=== PATIENT | female | born 1935 | race Caucasian/White ===

== ENCOUNTER → 2018-01-08 08:57 | Outpatient (CLI) | payer MEDICARE, BC ==
[2012-04-26 11:54] VITALS: BMI 25.0
== END | disposition home or self-care (01) ==
LOC: D.RAD 01-05 11:00
DX: M48.062 Spinal stenosis, lumbar region with neurogenic claudication (principal)

== ENCOUNTER 2018-05-25 15:01 | Emergency (ER) | payer MEDICARE, BC ==
[~2018-05-25] VITALS: Ht 152.4 cm; Wt 57.3 kg
[2018-05-25 15:07] VITALS: Ht 152.4 cm; Wt 57.3 kg
[2018-05-25] MEDS ORDERED: ARTHROTEC EC 71 EACH PO (15:09)
[2018-05-25] MEDS ORDERED: PRAVACHOL40 MG PO (15:09)
[2018-05-25] MEDS ORDERED: ZESTORETIC 10/11 TAB PO (15:09)
[2018-05-25] MEDS ORDERED: OMEPRAZOLE40 MG PO (15:10)
[2018-05-25] MEDS ORDERED: EVAMIST8.1 ML TP (15:10)
[2018-05-25] MEDS ORDERED: NIASPAN1000 MG PO (15:16)
[2018-05-25] MEDS ORDERED: BAYER CHEWABLE81 MG PO (15:17)
[2018-05-25 16:05] LABS: BASOPHILS 0.1 % (0-2); HEMATOCRIT 36.5 % (36.0-48.0); IMMATURE GRANULOCYTES 0.4 % (0-5); LYMPHOCYTES 27.3 % (15-50); MCH 34.8 pg (26.0-34.0); MCHC 35.6 g/dL (31.0-37.0); MCV 97.6 fL (80.0-100.0); MEAN PLATELET VOLUME 8.7 fL (7.4-10.4); MONOCYTES 7.8 % (2-11); NEUTROPHILS 63.4 % (40-80); PLATELET COUNT 264 10x3/uL (130-400); RBC 3.74 10x6/uL (4.00-5.40); RDW 13.3 % (11.5-14.5); WBC 6.8 10x3/uL (4.8-10.8)
[2018-05-25 16:11] LABS: APPEARANCE CLEAR (CLEAR); BILIRUBIN NEGATIVE (NEGATIVE); COLOR YELLOW (YELLOW); GLUCOSE NEGATIVE (NEGATIVE); KETONE NEGATIVE (NEGATIVE); NITRITE NEGATIVE (NEGATIVE); PROTEIN NEGATIVE (NEGATIVE); UROBILINOGEN NORMAL (NORMAL)
[2018-05-25 16:24] LABS: ALBUMIN 3.7 g/dL (3.4-5.0); ALKALINE PHOSPHATASE 72 U/L (46-116); ALT (SGPT) 29 U/L (10-68); BILIRUBIN - TOTAL 0.28 mg/dL (0.2-1.3); CALC OSMOLALITY 260 mosm/kg (275-300); CALCIUM 8.5 mg/dL (8.5-10.1); CHLORIDE - SERUM 96 mmol/L (98-107); CREATININE - SERUM 0.6 mg/dL (0.6-1.3); GLUCOSE 99 mg/dL (74-106); PROTEIN - SERUM 6.8 g/dL (6.4-8.2); SODIUM 130 mmol/L (136-145); UREA NITROGEN 13 mg/dL (7-18); eGFR NON AFRICAN AMERICAN > 90 mL/min (90-120)
[2018-05-25 21:55] VITALS: BP 135/57
== END 2018-05-25 21:55 | disposition home or self-care (01) ==
LOC: D.ER 15:01
PROVIDERS: Family Medicine
DX: R42 Dizziness and giddiness (principal); I10 Essential (primary) hypertension; E87.1 Hypo-osmolality and hyponatremia; K21.9 Gastro-esophageal reflux disease without esophagitis

== ENCOUNTER → 2018-10-04 10:59 | Outpatient (CLI) | payer MEDICARE, BC ==
[2018-05-25 15:07] VITALS: BMI 24.6
[~2018-10-04 10:59] MED LIST: ARTHROTEC EC 71 EACH PO; BAYER CHEWABLE81 MG PO; CLARITIN 10 MG10 MG PO; EVAMIST8.1 ML TP; LUNESTA2 M1 PO; NIASPAN1000 MG PO; NORVASC5 MG PO; OMEPRAZOLE40 MG PO; PRAVACHOL40 MG PO; ZESTORETIC 10/11 TAB PO
== END | disposition home or self-care (01) ==
LOC: D.LABREF 10:59
DX: M16.12 Unilateral primary osteoarthritis, left hip (principal); Z11.8 Encounter for screening for other infectious and parasitic diseases

== ENCOUNTER 2018-10-19 12:01 | Inpatient (IN) | payer MEDICARE, BC ==
[~2018-10-19] VITALS: Ht 149.9 cm; Wt 56.8 kg
--- NOTE | ~2018-10-19 | OP ---
PATIENT NAME: RADHA THAKKAR MEDICAL RECORD: [id number] :33 LOCATION:D.MS Wang2215 ADMISSION DATE:10/30/18 SURGEON: JASON RIBERA DO DATE OF OPERATION: 10/30/2018 PROCEDURE PERFORMED: Left total hip arthroplasty. PREOPERATIVE DIAGNOSIS: Severe end-stage left hip osteoarthritis. POSTOPERATIVE DIAGNOSIS: Severe end-stage left hip osteoarthritis. INDICATIONS: Ms. Thakkar is an 83-year-old female that presented with severe left hip pain and limping and lack of motion. It had been going on for quite some time and her primary care doctor referred her to me. She was tired of dealing with the pain and is affecting her activities of daily living and she desired a total hip to be done. I informed her of the risks including, fracture, damage to the nerve and vessels, bleeding, infection and need for further surgery, blood clots, and even . She was okay with those risks and signed the consent. SURGEON: Jason Ribera DO DESCRIPTION OF PROCEDURE: The patient was given a block by anesthesia in the preoperative area and taken to the operative suite, laid in supine position, sedated and then intubated, given 80 mg gentamicin and 1 gram of Ancef preoperatively. The patient was then positioned on to the [place] table and the left hip was prepped and draped in sterile fashion. A timeout was performed. Everyone was in agreement as to the correct side, site, patient and procedure. The patient received a gram of TXA as well prior to the beginning of the procedure. Once timeout was performed, everyone was in agreeance. The incision began over the tensor fascia dustin fascia on the skin and a careful dissection was made down to the tensor fascia dustin fascia. This was incised. Fascia was taken anterior, the muscle belly posteriorly. I opened up the interval of the rectus and the fascia over the rectus and then the Alexsander Jose retractor was used to take the rectus medially and the tensor fascia dustin laterally. This exposed the ascending branch of lateral femoral circumflex artery. This was tied off and coagulated with Aquamantys and then cut. A Bowers was then used to take the fat off the capsule. The capsule was exposed, the capsule was opened then and tagged and the Hohmanns were placed around the neck of the femur at that time intracapsular and a neck cut was made. Once the neck cut was made, the head was removed. It was very soft and we got it removed. Then, reaming began first medializing and then up to 50. Once the 50 was reamed, a 50 cup was put in, Osteotite shell, and then the liner was placed in and impacted into place. The femur was then exposed. A canal finder was used and the Curefab cutter and then broaching began with a 4 and up to a 13. The 13 fit very well and it was trialed, reduced with a -6 neck. This was a very good length in the femur. This was taken out and then the actual implant was put in. Irrigation was done at that time and Surgicel beads and antibiotic powder, tobramycin and vancomycin were placed in the hip after irrigation. Then the hip capsule was closed with #2 Ethibond, then the tensor fascia dustin fascia was closed with #1 Vicryl, first in a [id number]-[id number]-[id number] and then a running locking stitch on it. Then that was irrigated and the skin was then closed with 2-0 Vicryl in inverted interrupted fashion and then 4-0 Monocryl ran on the skin and a Prineo Dermabond grid glue was placed on the skin, by Raj Tate APRN. Telfa and Tegaderm were placed on the wound. The patient was awakened and taken to recovery in stable OPERATIVE REPORT [id number] RADHA THAKKAR condition. Blood loss approximately 150 mL. COMPLICATIONS: None. TRANSINT:[id number] Voice Confirmation ID: [id number] DOCUMENT ID: [id number] 11/16/2018 Edited to add martin Tate. JASON RIBERA DO CC: [id number] DICTATION DATE: 10/30/18911 DEVELOPMENT ADMINISTRATOR: 10/30/18 1136 DIS IN 11/01/18 [place] [id number] [place] [id number]
[~2018-10-19 12:01] MED LIST changes: -CLARITIN 10 MG10 MG PO; -LUNESTA2 M1 PO; -NORVASC5 MG PO
[2018-10-23] MEDS ORDERED: NORVASC5 MG PO (14:23)
[2018-10-23] MEDS ORDERED: CLARITIN 10 MG10 MG PO (14:23)
[2018-10-23] MEDS ORDERED: LUNESTA2 M1 PO (14:25)
[2018-10-24 12:42] LABS: BASOPHILS 0.3 % (0-2); EOSINOPHILS 1.2 % (0-7); HEMATOCRIT 40.9 % (36.0-48.0); HEMOGLOBIN 14.3 g/dL (12-16); IMMATURE GRANULOCYTES 0.2 % (0-5); LYMPHOCYTES 26.2 % (15-50); MCH 34.3 pg (26.0-34.0); MCV 98.1 fL (80.0-100.0); MEAN PLATELET VOLUME 8.8 fL (7.4-10.4); MONOCYTES 6.6 % (2-11); NEUTROPHILS 65.5 % (40-80); PLATELET COUNT 279 10x3/uL (130-400); RBC 4.17 10x6/uL (4.00-5.40); RDW 13.1 % (11.5-14.5); WBC 6.5 10x3/uL (4.8-10.8)
[2018-10-24 12:44] LABS: APPEARANCE CLEAR (CLEAR); BILIRUBIN NEGATIVE (NEGATIVE); COLOR YELLOW (YELLOW); GLUCOSE NEGATIVE (NEGATIVE); KETONE SMALL mg/dL (NEGATIVE); NITRITE NEGATIVE (NEGATIVE); PROTEIN TRACE mg/dL (NEGATIVE); UROBILINOGEN NORMAL (NORMAL)
[2018-10-24 12:53] LABS: INR 0.92 (0.85-1.17); PROTIME 11.9 SECONDS (11.6-15.0)
[2018-10-24 12:54] LABS: CALC OSMOLALITY 268 mosm/kg (275-300); CALCIUM 9.2 mg/dL (8.5-10.1); CARBON DIOXIDE 26.8 mmol/L (21.0-32.0); CHLORIDE - SERUM 96 mmol/L (98-107); CREATININE - SERUM 0.7 mg/dL (0.6-1.3); GLUCOSE 88 mg/dL (74-106); POTASSIUM - SERUM 3.2 mmol/L (3.5-5.1); SODIUM 135 mmol/L (136-145); UREA NITROGEN 13 mg/dL (7-18); eGFR NON AFRICAN AMERICAN 84 mL/min (90-120)
[2018-10-30] VITALS (9 sets, daily range): BP systolic 127–187; BP diastolic 57–88; Ht 149.9 cm; Wt 56.8 kg
[2018-10-30] MEDS ORDERED: MULTI-DAY VITAM1 TAB PO (06:19)
[2018-10-30] MEDS ORDERED: PROBIOTIC1 EAC1 PO (06:20)
[2018-10-30] MEDS ORDERED: [UNRECOGNIZED DRUG - OTHER] (06:20)
[2018-10-30] MEDS ORDERED: CITRACAL + D E1 EACH PO (06:20)
[2018-10-30] MEDS ORDERED: FISH OIL 1,0001 CA1 PO (06:20)
[2018-10-30] MEDS ORDERED: BENADRYL50 MG PO (06:21)
[2018-10-30] MEDS ORDERED: STOOL SOFTENER240 MG PO (06:21)
--- NOTE | 2018-10-30 08:04 | NUR ---
PLASMA BLADE SET TO 6/8 BOVIE PAD RIGHT THIGH [id number] EXP 03/08/2020
--- NOTE | 2018-10-30 10:20 | NUR ---
PT RECEIVED VIA BED TO ROOM 2215 FROM RECOVERY. ALERT AND ORIENTED. NO ACUTE DISTRESS NOTED. O2 @ 2L NC IN PLACE. IV TO L WRIST WITH LR @ 100ML/HR INFUSING VIA PUMP. SITE WITHOUT REDNESS OR EDEMA. DRESSING TO LEFT HIP C/D/I. REPORTS PAIN 3/10 AT THIS TIME. ORIENTED TO CL AND BED CONTROLS. CL WITHIN REACH. ENCOURAGED TO CALL WITH NEEDS. WILL CONTINUE TO MONITOR.
--- NOTE | 2018-10-30 13:21 | OP ---
PATIENT NAME: RADHA THAKKAR MEDICAL RECORD: [id number] :34 LOCATION:D.MS Wang2215 ADMISSION DATE:10/30/18 SURGEON: WINTER RIBERA DO DATE OF OPERATION: 10/30/2018 ADDENDUM I was assisted by Raj Tate, Advanced Nurse Practitioner. He assisted me throughout the procedure with holding retractors and with closing the wound. This could not have been done without his assistance. TRANSINT:[id number] Voice Confirmation ID: [id number] DOCUMENT ID: [id number] WINTER RIBERA DO at 1321 CC: [id number] DICTATION DATE: 10/30/18 1107 BUSINESS BANKER: 10/30/18 1134 ADM IN [place] [id number] [place] [address]
[2018-10-30] MEDS ORDERED: ELIQUIS2.5 MG PO (14:17)
[2018-10-30] MEDS ORDERED: HYDROCODON-ACE1 EA10 PO (14:18)
[2018-10-30] MEDS ORDERED: KEFLEX500 MG PO (14:18)
--- NOTE | 2018-10-30 20:00 | NUR ---
RESTING IN BED NO APPARENT DISTRESS DRESSING TO LEFT UPPER THIGH CLEAN DRY AND INTACT, REPORTS MILD PAIN AT 4 OUT OF 10 AT THIS TIME. CALL PRESLEY PARKER, NO NEEDS VOICED AT THIS TIME
[2018-10-31] VITALS (7 sets, daily range): BP systolic 132–171; BP diastolic 51–85
[2018-10-31 04:58] LABS: BASOPHILS 0.1 % (0-2); EOSINOPHILS 0.1 % (0-7); HEMATOCRIT 30.9 % (36.0-48.0); HEMOGLOBIN 10.8 g/dL (12-16); IMMATURE GRANULOCYTES 0.1 % (0-5); LYMPHOCYTES 23.7 % (15-50); MCH 33.9 pg (26.0-34.0); MCV 96.9 fL (80.0-100.0); MEAN PLATELET VOLUME 8.8 fL (7.4-10.4); MONOCYTES 12.2 % (2-11); NEUTROPHILS 63.8 % (40-80); PLATELET COUNT 225 10x3/uL (130-400); RBC 3.19 10x6/uL (4.00-5.40); RDW 13.2 % (11.5-14.5); WBC 7.8 10x3/uL (4.8-10.8)
[2018-10-31 05:17] LABS: CALC OSMOLALITY 266 mosm/kg (275-300); CALCIUM 8.2 mg/dL (8.5-10.1); CARBON DIOXIDE 24.8 mmol/L (21.0-32.0); CHLORIDE - SERUM 98 mmol/L (98-107); CREATININE - SERUM 0.6 mg/dL (0.6-1.3); GLUCOSE 104 mg/dL (74-106); POTASSIUM - SERUM 3.4 mmol/L (3.5-5.1); SODIUM 134 mmol/L (136-145); UREA NITROGEN 9 mg/dL (7-18); eGFR NON AFRICAN AMERICAN > 90 mL/min (90-120)
--- NOTE | 2018-10-31 08:01 | NUR ---
PT IS RESTING IN BED WITH EYES OPEN. RESPIRATIONS ARE EVEN AND UNLABORED. PT REQUESTS ASSISTANCE WITH BED ALVES. PT ASSISTED. PT DENIES PRESENCE OF PAIN AT THIS TIME. DRESSING TO LEFT HIP IS C/D/I. SLIGHT BRUISING NOTED AROUND DRESSING. PT REPORTS TINGLING SENSATION TO LEFT HIP AREA, DENIES NUMBNESS TO LOWER EXTREMITY. BED IS IN THE LOWEST POSITION. CALL LIGHT AND BEDSIDE TABLE ARE WITHIN REACH. PT DENIES FURTHER NEEDS. WILL CONT TO MONITOR.
--- NOTE | 2018-10-31 14:22 | MORECARE ---
CASE MANAGEMENT DISCHARGE SUMMARY PATIENT: RADHA THAKKAR UNIT: [id number] ADM DATE: 10/30/18 AGE: 83 : 34 SEX: F ROOM/BED: D.2215 AUTHOR: THOMAS GOMEZ PHYSICIAN: REFERRING PHYSICIAN: WINTER RIBERA DO DATE OF SERVICE: 10/31/18 Discharge Plan Patient Name: RADHA THAKKAR Facility: [facility]:[place] : 1935 Planned Disposition: Home Anticipated Discharge Date: Discharge Date: Expected LOS: Initial Reviewer: [email or web address] Initial Review Date: 10/30/2018 Generated: 10/31/18 3:22 pm DCPIA - Discharge Planning Initial Assessment Updated by [email or web address]: Victorina Perea on 10/31/18 2:22 pm * Is the patient Alert and Oriented? Yes * How many steps to enter\exit or inside your home? * PCP CARLOS ENRIQUE * Pharmacy [facility] * Preadmission Environment Home with Family * ADLs Independent * Equipment Rolling Walker * Other Equipment grabber * List name and contact numbers for known caregivers / representatives who currently or will assist patient after discharge: Lovely Ding (daughter) [phone] * Verbal permission to speak to the caregivers and representatives has been obtained from the patient. N/A * Community resources currently utilized None * Additional services required to return to the preadmission environment? Yes * Can the patient safely return to the preadmission environment? Yes * Has this patient been hospitalized within the prior 30 days at any hospital? No Patient Name: RADHA THAKKAR Page 45360 at 1422 All edits/amendments must be made on the electronic document DICTATION DATE: 10/31/18 142 CONVENTION SERVICES DIRECTOR: RICK 10/31/18 142 RPT#: [id number] DC DATE: STATUS: ADM IN [facility] [address] [place] [address] END OF REPORT
--- NOTE | 2018-10-31 14:34 | MORECARE ---
CASE MANAGEMENT DISCHARGE SUMMARY PATIENT: RADHA THAKKAR UNIT: [id number] ADM DATE: 10/30/18 AGE: 83 : 34 SEX: F ROOM/BED: D.2215 AUTHOR: THOMAS GOMEZ PHYSICIAN: REFERRING PHYSICIAN: WINTER RIBERA DO DATE OF SERVICE: 10/31/18 Discharge Plan Patient Name: RADHA THAKKAR Facility: [facility]:[place] : 1935 Planned Disposition: Home Anticipated Discharge Date: Discharge Date: Expected LOS: Initial Reviewer: [email or web address] Initial Review Date: 10/30/2018 Generated: 10/31/18 3:34 pm Comments DCP- Discharge Planning Updated by [email or web address]: Victorina Perea on 10/31/18 1:[address] Patient Name: RADHA THAKKAR Admission Status: Elective Accout number: [id number] Admission Date: 10-30-2018 : 1935 Admission Diagnosis: Attending: WINTER RIBERA Current LOS: 1 Anticipated DC Date: Planned Disposition: Home Primary Insurance: MEDICARE A & B Discharge Planning Comments: CM met with patient to assess discharge planning needs. Patient lives independently at home with her and plans to return there at discharge. She stated that there are no steps in her home. She stated that she has a walker and a grabber at home. She would like to use [facility] for her OP PT. I will call and make the first visit. Her will be her delivery motorcycle driver home. CM will continue to follow and assist with DC planning needs. Active Directory Systems Administrator: Victorina Perea DCPIA - Discharge Planning Initial Assessment Updated by [email or web address]: Victorina Perea on 10/31/18 2:22 pm * Is the patient Alert and Oriented? Yes * How many steps to enter\exit or inside your home? * PCP PULLIG * Pharmacy [facility] * Preadmission Environment Home with Family * ADLs Independent * Equipment Rolling Walker * Other Equipment grabber * List name and contact numbers for known caregivers / representatives who currently or will assist patient after discharge: Lovely Ding (daughter) [phone] * Verbal permission to speak to the caregivers and representatives has been obtained from the patient. N/A * Community resources currently utilized None * Additional services required to return to the preadmission environment? Yes * Can the patient safely return to the preadmission environment? Yes * Has this patient been hospitalized within the prior 30 days at any hospital? No Last DP export: 10/31/18 1:22 p Patient Name: RADHA THAKKAR Page 19204 at 1434 All edits/amendments must be made on the electronic document DICTATION DATE: 10/31/18 1433 FURNITURE CRATER: RICK 10/31/18 1433 RPT#: [id number] DC DATE: STATUS: ADM IN [facility] [address] [place] [address] END OF REPORT
--- NOTE | 2018-10-31 14:36 | NUR ---
PT STATES, "I AM NOT FEELING WELL". PT REQUESTS TO HAVE BP TAKEN. SEE FLOWSHEET. PT DENIES PRESENCE OF N/V AND PAIN AT THIS TIME. PT DENIES FURTHER NEEDS. PT STATES, "I AM JUST STRESSED RIGHT NOW. I JUST WANT TO GET HOME". BED IS IN THE LOWEST POSITION. CALL LIGHT AND BEDSIDE TABLE ARE WITHIN REACH. PT DENIES FURTHER NEEDS AT THIS TIME. WILL CONT TO MONITOR.
--- NOTE | 2018-10-31 14:43 | MORECARE ---
CASE MANAGEMENT DISCHARGE SUMMARY PATIENT: RADHA THAKKAR UNIT: [id number] ADM DATE: 10/30/18 AGE: 83 : 34 SEX: F ROOM/BED: D.2215 AUTHOR: THOMAS GOMEZ PHYSICIAN: REFERRING PHYSICIAN: WINTER RIBERA DO DATE OF SERVICE: 10/31/18 Discharge Plan Patient Name: RADHA THAKKAR Facility: [facility]:[place] : 1935 Planned Disposition: Home Anticipated Discharge Date: Discharge Date: Expected LOS: Initial Reviewer: [email or web address] Initial Review Date: 10/30/2018 Generated: 10/31/18 3:43 pm Comments DCP- Discharge Planning Updated by [email or web address]: Victorina Perea on 10/31/18 1:[address] OP PT APPOINTMENT HAS BEEN MADE FOR Monday11/05/18 @ 2:30PM AND Mon11/07/18 @ 9:00AM. I SPOKE WITH JOSH COPY WILL BE SENT TO HER DCP- Discharge Planning Updated by [email or web address]: Victorina Perea on 10/31/18 1:[address] Patient Name: RADHA THAKKAR Admission Status: Elective Accout number: [id number] Admission Date: 10-30-2018 : 1935 Admission Diagnosis: Attending: WINTER RIBERA Current LOS: 1 Anticipated DC Date: Planned Disposition: Home Primary Insurance: MEDICARE A & B Discharge Planning Comments: CM met with patient to assess discharge planning needs. Patient lives independently at home with her and plans to return there at discharge. She stated that there are no steps in her home. She stated that she has a walker and a grabber at home. She would like to use [facility] for her OP PT. I will call and make the first visit. Her will be her jukebox route driver home. CM will continue to follow and assist with DC planning needs. Certified Neurodiagnostic Technologist: Victorina Perea DCPIA - Discharge Planning Initial Assessment Updated by [email or web address]: Victorina Perea on 10/31/18 2:22 pm * Is the patient Alert and Oriented? Yes * How many steps to enter\exit or inside your home? * PCP [facility] * Pharmacy [facility] * Preadmission Environment Home with Family * ADLs Independent * Equipment Rolling Walker * Other Equipment grabber * List name and contact numbers for known caregivers / representatives who currently or will assist patient after discharge: Lovely Ding (daughter) [phone] * Verbal permission to speak to the caregivers and representatives has been obtained from the patient. N/A * Community resources currently utilized None * Additional services required to return to the preadmission environment? Yes * Can the patient safely return to the preadmission environment? Yes * Has this patient been hospitalized within the prior 30 days at any hospital? No External Providers External Provider: Maryann CANO Next Contact Date: Service Request Date: Service Type: Resolution: Reviewer: Comments: Last DP export: 10/31/18 1:34 p Patient Name: RADHA THAKKAR Page 14288 at 1443 All edits/amendments must be made on the electronic document DICTATION DATE: 10/31/18 144 MANAGED CARE NURSE: RICK 10/31/18 1443 RPT#: [id number] DC DATE: STATUS: ADM IN [facility] [address] [place] [address] END OF REPORT
--- NOTE | 2018-10-31 15:45 | NUR ---
PT C/O IV DISCOMFORT. SLIGHT SWELLING NOTED TO LEFT WRIST. LEFT WRIST PIV REMOVED PER PT REQUEST. NO REDNESS, WARMTH NOTED. CATHETER TIP INTACT. PT IS REFUSING NEW IV PLACEMENT AT THIS TIME.
--- NOTE | 2018-10-31 19:00 | NUR ---
PT IN BED IN LOW FOWLERS POSITION. ALERT AND ORIENTED X4. VITAL SIGNS STABLE AND AFEBRILE. NO VISUAL CUES OF DISTRESS NOTED. DENIES ANY OTHER NEEDS AT THIS TIME. BED LOW, SIDE RAILS UP X2. CALL LIGHT IN REACH. WILL CONTINUE TO MONITOR.
[2018-11-01 04:51] LABS: BASOPHILS 0.4 % (0-2); EOSINOPHILS 1.2 % (0-7); HEMATOCRIT 28.7 % (36.0-48.0); HEMOGLOBIN 10.4 g/dL (12-16); IMMATURE GRANULOCYTES 0.2 % (0-5); MCH 35.1 pg (26.0-34.0); MCHC 36.2 g/dL (31.0-37.0); MEAN PLATELET VOLUME 9.1 fL (7.4-10.4); MONOCYTES 9.2 % (2-11); PLATELET COUNT 199 10x3/uL (130-400); RBC 2.96 10x6/uL (4.00-5.40); RDW 13.5 % (11.5-14.5)
[2018-11-01 04:54] LABS: CALC OSMOLALITY 276 mosm/kg (275-300); CALCIUM 8.4 mg/dL (8.5-10.1); CARBON DIOXIDE 25.9 mmol/L (21.0-32.0); CHLORIDE - SERUM 105 mmol/L (98-107); CREATININE - SERUM 0.5 mg/dL (0.6-1.3); GLUCOSE 101 mg/dL (74-106); POTASSIUM - SERUM 3.3 mmol/L (3.5-5.1); SODIUM 139 mmol/L (136-145); UREA NITROGEN 9 mg/dL (7-18); eGFR NON AFRICAN AMERICAN > 90 mL/min (90-120)
[2018-11-01 05:01] LABS: WBC 5.7 10x3/uL (4.8-10.8)
--- NOTE | 2018-11-01 07:25 | NUR ---
PT RESTING IN BED, EYES OPEN. NO C/O PAIN. NO S/S OF ACUTE DISTRESS NOTED. POD #2 TOTAL HIP REPLACEMENT, DRESSING CDI. PT ALERT AND ORIENTED. UP WITH ASSIST. PT DENIES ANYTHING FURTHER AT THIS TIME. CALL LIGHT IN REACH. WILL CONTINUE TO MONITOR.
[2018-11-01 08:38] VITALS: BP 143/62
--- NOTE | 2018-11-01 09:58 | MORECARE ---
CASE MANAGEMENT DISCHARGE SUMMARY PATIENT: RADHA THAKKAR UNIT: [id number] ADM DATE: 10/30/18 AGE: 83 : 34 SEX: F ROOM/BED: D.2215 AUTHOR: THOMAS GOMEZ PHYSICIAN: REFERRING PHYSICIAN: WINTER RIBERA DO DATE OF SERVICE: 11/01/18 Discharge Plan Patient Name: RADHA THAKKAR Facility: [facility]:[place] : 1935 Planned Disposition: Home Anticipated Discharge Date: Discharge Date: Expected LOS: Initial Reviewer: [email or web address] Initial Review Date: 10/30/2018 Generated: 11/01/18 10:57 am Comments DCP- Discharge Planning Updated by [email or web address]: Victorina Perea on 11/01/18 8:[address] PATIENT IS DISCHARGING HOME TODAY. HER FIRST APPOINTMENT WAS SET FOR MONDAY AT 2:30 AND THE PATIENT STATED THAT 100% CAN NOT DO IN THE AFTERNOON. HER GOES TO BED AT 3:00PM. I EXPLAINED TO HER THAT THE NEXT MORNING APPOINTMENT THAT THEY HAVE WILL BE MON. SHE STATED THAT WOULD HAVE TO DO AND SHE WILL JUST DO EXERCISES AT HOME. I CALLED [facility] TO CANCEL THE MONDAY APPOINTMENT. CM TO FOLLOW AND ASSIST WITH DC PLANNING NEEDED DCP- Discharge Planning Updated by [email or web address]: Victorina Perea on 10/31/18 1:[address] OP PT APPOINTMENT HAS BEEN MADE FOR Monday11/05/18 @ 2:30PM AND Mon11/07/18 @ 9:00AM. I SPOKE WITH JOSH COPY WILL BE SENT TO HER DCP- Discharge Planning Updated by [email or web address]: Victorina Perea on 10/31/18 1:[address] Patient Name: RADHA THAKKAR Admission Status: Elective Accout number: [id number] Admission Date: 10-30-2018 : 1935 Admission Diagnosis: Attending: WINTER RIBERA Current LOS: 1 Anticipated DC Date: Planned Disposition: Home Primary Insurance: MEDICARE A & B Discharge Planning Comments: CM met with patient to assess discharge planning needs. Patient lives independently at home with her and plans to return there at discharge. She stated that there are no steps in her home. She stated that she has a walker and a grabber at home. She would like to use [facility] for her OP PT. I will call and make the first visit. Her will be her transit driver home. CM will continue to follow and assist with DC planning needs. Director Supply Chain: Victorina Perea DCPIA - Discharge Planning Initial Assessment Updated by [email or web address]: Victorina Perea on 10/31/18 2:22 pm * Is the patient Alert and Oriented? Yes * How many steps to enter\exit or inside your home? * PCP [facility] * Pharmacy [facility] * Preadmission Environment Home with Family * ADLs Independent * Equipment Rolling Walker * Other Equipment grabber * List name and contact numbers for known caregivers / representatives who currently or will assist patient after discharge: Lovely Ding (daughter) [phone] * Verbal permission to speak to the caregivers and representatives has been obtained from the patient. N/A * Community resources currently utilized None * Additional services required to return to the preadmission environment? Yes * Can the patient safely return to the preadmission environment? Yes * Has this patient been hospitalized within the prior 30 days at any hospital? No Last DP export: 10/31/18 1:43 p Patient Name: RADHA THAKKAR Page 92836 at 0958 All edits/amendments must be made on the electronic document DICTATION DATE: 11/01/18956 SHOOTER'S HELPER: RICK 11/01/18956 RPT#: [id number] DC DATE: STATUS: ADM IN [facility] [address] [place] [address] END OF REPORT
[2018-11-01] MEDS ORDERED: LISINOPRIL10 MG PO (10:03)
--- NOTE | 2018-11-01 11:17 | NUR ---
DISCHARGED PT HOME WITH VIA WHEELCHAIR. WENT OVER DISCHARGE INSTRUCTIONS WITH PATIENT, PT ACKNOWLEDGED INSTRUCTIONS. PT DENIES ANYTHING FURTHER AT THIS TIME. NO S/S OF ACUTE DISTRESS NOTED. NO C/O PAIN.
--- NOTE | 2018-11-02 14:51 | MORECARE ---
CASE MANAGEMENT DISCHARGE SUMMARY PATIENT: RADHA THAKKAR UNIT: [id number] ADM DATE: 10/30/18 AGE: 83 : 34 SEX: F ROOM/BED: D.2215 AUTHOR: THOMAS GOMEZ PHYSICIAN: REFERRING PHYSICIAN: WINTER RIBERA DO DATE OF SERVICE: 11/02/18 Discharge Plan Patient Name: RADHA THAKKAR Facility: [facility]:[place] : 1935 Planned Disposition: Home Anticipated Discharge Date: Discharge Date: 11/01/2018 Expected LOS: 0 Initial Reviewer: [email or web address] Initial Review Date: 10/30/2018 Generated: 11/02/18 3:51 pm Comments DCP- Discharge Planning Updated by [email or web address]: Victorina Perea on 11/01/18 8:[address] PATIENT IS DISCHARGING HOME TODAY. HER FIRST APPOINTMENT WAS SET FOR MONDAY AT 2:30 AND THE PATIENT STATED THAT 100% CAN NOT DO IN THE AFTERNOON. HER GOES TO BED AT 3:00PM. I EXPLAINED TO HER THAT THE NEXT MORNING APPOINTMENT THAT THEY HAVE WILL BE MON. SHE STATED THAT WOULD HAVE TO DO AND SHE WILL JUST DO EXERCISES AT HOME. I CALLED [facility] TO CANCEL THE MONDAY APPOINTMENT. CM TO FOLLOW AND ASSIST WITH DC PLANNING NEEDED DCP- Discharge Planning Updated by [email or web address]: Victorina Perea on 10/31/18 1:[address] OP PT APPOINTMENT HAS BEEN MADE FOR Monday11/05/18 @ 2:30PM AND Mon11/07/18 @ 9:00AM. I SPOKE WITH JOSH COPY WILL BE SENT TO HER DCP- Discharge Planning Updated by [email or web address]: Victorina Perea on 10/31/18 1:[address] Patient Name: RADHA THAKKAR Admission Status: Elective Accout number: [id number] Admission Date: 10-30-2018 : 1935 Admission Diagnosis: Attending: WINTER RIBERA Current LOS: 1 Anticipated DC Date: Planned Disposition: Home Primary Insurance: MEDICARE A & B Discharge Planning Comments: CM met with patient to assess discharge planning needs. Patient lives independently at home with her and plans to return there at discharge. She stated that there are no steps in her home. She stated that she has a walker and a grabber at home. She would like to use [facility] for her OP PT. I will call and make the first visit. Her will be her lokie driver home. CM will continue to follow and assist with DC planning needs. Geothermal Plant Manager: Victorina Perea DCPIA - Discharge Planning Initial Assessment Updated by [email or web address]: Victorina Perea on 10/31/18 2:22 pm * Is the patient Alert and Oriented? Yes * How many steps to enter\exit or inside your home? * PCP [facility] * Pharmacy [facility] * Preadmission Environment Home with Family * ADLs Independent * Equipment Rolling Walker * Other Equipment grabber * List name and contact numbers for known caregivers / representatives who currently or will assist patient after discharge: Lovely Ding (daughter) [phone] * Verbal permission to speak to the caregivers and representatives has been obtained from the patient. N/A * Community resources currently utilized None * Additional services required to return to the preadmission environment? Yes * Can the patient safely return to the preadmission environment? Yes * Has this patient been hospitalized within the prior 30 days at any hospital? No Last DP export: 11/01/18 8:58 a Patient Name: RADHA THAKKAR Page 05031 at 1451 All edits/amendments must be made on the electronic document DICTATION DATE: 11/02/18 145 PROPERTY ACCOUNTANT: RICK 11/02/18 1450 RPT#: [id number] DC DATE:11/01/18 STATUS: DIS IN [facility] [address] [place] [address] END OF REPORT
== END 2018-11-01 11:19 | disposition home or self-care (01) | DRG 470 ==
LOC: D.MS 10-30 05:00 → D.SDCHOLD 10-30 05:00 → D.MS 10-30 10:15
PROVIDERS: Internal Medicine Nephrology; ADMIT Orthopaedic Surgery
PROC: 0SRB0JZ Replacement of Left Hip Joint with Synthetic Substitute, Open Approach (ICD-10-PCS; principal; 2018-10-30 07:00)
DX: M16.12 Unilateral primary osteoarthritis, left hip (principal); I10 Essential (primary) hypertension; K21.9 Gastro-esophageal reflux disease without esophagitis

== ENCOUNTER 2018-11-29 09:41 | Inpatient (IN) | payer MEDICARE, BC ==
[~2018-11-29] VITALS: Ht 149.9 cm; Wt 55.0 kg
[~2018-11-29 09:41] MED LIST changes: +BENADRYL50 MG PO; +CITRACAL + D E1 EACH PO; +CLARITIN 10 MG10 MG PO; +ELIQUIS2.5 MG PO; +FISH OIL 1,0001 CA1 PO; +HYDROCODON-ACE1 EA10 PO; +KEFLEX500 MG PO; +LISINOPRIL10 MG PO; +LUNESTA2 M1 PO; +MULTI-DAY VITAM1 TAB PO; +NORVASC5 MG PO; +PROBIOTIC1 EAC1 PO; +STOOL SOFTENER240 MG PO; +[UNRECOGNIZED DRUG - OTHER]
[2018-11-30 12:54] LABS: BASOPHILS 0.4 % (0-2); EOSINOPHILS 2.5 % (0-7); HEMATOCRIT 38.8 % (36.0-48.0); HEMOGLOBIN 13.4 g/dL (12-16); IMMATURE GRANULOCYTES 0.2 % (0-5); LYMPHOCYTES 25.4 % (15-50); MCHC 34.5 g/dL (31.0-37.0); MCV 98.5 fL (80.0-100.0); MEAN PLATELET VOLUME 9.4 fL (7.4-10.4); MONOCYTES 9.5 % (2-11); PLATELET COUNT 267 10x3/uL (130-400); RBC 3.94 10x6/uL (4.00-5.40); RDW 13.7 % (11.5-14.5); WBC 5.6 10x3/uL (4.8-10.8)
[2018-11-30 12:59] LABS: APTT 25.2 SECONDS (22.8-39.4); INR 0.96 (0.85-1.17); PROTIME 12.3 SECONDS (11.6-15.0)
[2018-11-30 13:04] LABS: ANION GAP 15.4 mmol/L (8-16); CALCIUM 9.4 mg/dL (8.5-10.1); CARBON DIOXIDE 25.5 mmol/L (21.0-32.0); CREATININE - SERUM 0.8 mg/dL (0.6-1.3); POTASSIUM - SERUM 3.9 mmol/L (3.5-5.1)
[2018-11-30 13:23] LABS: APPEARANCE SL CLDY (CLEAR); BACTERIA MODERATE /hpf (NONE SEEN); BILIRUBIN NEGATIVE (NEGATIVE); COLOR DK YELLOW (YELLOW); EPITHELIAL CELLS 0-5 /hpf (0-5); GLUCOSE NEGATIVE (NEGATIVE); KETONE SMALL mg/dL (NEGATIVE); MUCUS <1+ /lpf (NONE SEEN); NITRITE NEGATIVE (NEGATIVE); PROTEIN 1+ mg/dL (NEGATIVE); RED CELLS - URINE 0-5 /hpf (0-5); SPECIFIC GRAVITY 1.025 (1.005-1.020); UROBILINOGEN NORMAL (NORMAL); WHITE CELLS - URINE 0-5 /hpf (0-5); YEAST <1+ /hpf (NONE SEEN)
[2018-11-30 13:34] VITALS: BP 194/87; BMI 24.5
--- NOTE | 2018-11-30 19:00 | NUR ---
REPORT RECEIVED AND CARE OF PT ASSUMED. PT LYING IN SUPINE POSITION. WOUND VAC ON LEFT HIP WELL COMPRESSED AND DRESSING CLEAN AND DRY. PLACED SCD'S ON BLE NELLY DVT PROPHOLAXIS. IV IN RIGHT HAND PATENT WITH 1/2 NS INFUSING AT 30 ML / HR. WILL MONITOR FOR NEEDS.
--- NOTE | 2018-11-30 19:30 | NUR ---
CHANGED PT'S GOWN SHE SPILLED DENTURE CUP ON HERSELF. WILL CONTINUE TO MONITOR FOR NEEDS.
[2018-11-30 20:53] VITALS: BP 147/61
--- NOTE | 2018-11-30 21:00 | NUR ---
HS MEDICATIONS GIVEN. PT DECLINES NEED FOR PAIN MED AT THIS TIME.
[2018-11-30 21:21] VITALS: BP 147/61; Ht 149.9 cm; Wt 55.0 kg
--- NOTE | 2018-11-30 21:30 | NUR ---
PT VOIDED APPROX 50 ML YELLOW URINE.
--- NOTE | 2018-11-30 22:05 | NUR ---
ADMISSION ASSESSMENT COMPLETE.
[2018-12-01 01:19] VITALS: BP 147/61
--- NOTE | 2018-12-01 04:13 | NUR ---
IV IN RIGHT HAND INFILTRATED. REMOVED WITH CATHETER TIP INTACT. X4 NURSES ATTEMPTED TO RE-SITE. RE-SITED BY DESTINY MINER RN USING 22 GUAGE IN ONE STICK. IV FLUIDS RE-STARTED.
[2018-12-01 05:27] VITALS: BP 164/60
--- NOTE | 2018-12-01 05:48 | NUR ---
PT HAS VOIDED APPROX 100 ML THIS SHIFT. BLADDER SCANNER REVEALED 245ML OF RETAINED URING IN BLADDER. WILL CONTINUE TO MONITOR CLOSELY AND ENCOURAGE PO INTAKE TO FACILITATE URINATION.
[2018-12-01 06:41] LABS: MCH 33.7 pg (26.0-34.0); MCHC 34.2 g/dL (31.0-37.0); MCV 98.6 fL (80.0-100.0); MEAN PLATELET VOLUME 9.3 fL (7.4-10.4); WBC 6.6 10x3/uL (4.8-10.8)
[2018-12-01 06:48] LABS: HEMATOCRIT 27.5 % (36.0-48.0); HEMOGLOBIN 9.4 g/dL (12-16); RBC 2.79 10x6/uL (4.00-5.40)
--- NOTE | 2018-12-01 07:42 | NUR ---
PT ALERT X 4. BREATH SOUNDS CLEAR BILAT. IV TO LEFT AC, PATENT, DRESSING CLEAN DRY AND INTACT. PREVENA TO LEFT HIP, DRESSING INTACT. PT REPORTING NO PAIN AT THIS TIME. SCD'S IN PLACE. BED LOW, CALL LIGHT IN REACH. NO OTHER NEEDS AT THIS TIME.
[2018-12-01 09:19] VITALS: BP 122/59
--- NOTE | 2018-12-01 10:27 | NUR ---
URINE SPECIMEN COLLECTED AND TAKEN TO LAB. PATIENT DENIES NEEDS AT THIS TIME.
[2018-12-01 10:48] LABS: APPEARANCE HAZY (CLEAR); BILIRUBIN NEGATIVE (NEGATIVE); COLOR YELLOW (YELLOW); GLUCOSE 50 mg/dL (NEGATIVE); KETONE NEGATIVE (NEGATIVE); NITRITE NEGATIVE (NEGATIVE); PROTEIN 1+ mg/dL (NEGATIVE); UROBILINOGEN NORMAL (NORMAL)
[2018-12-01 10:50] LABS: BACTERIA FEW /hpf (NONE SEEN); EPITHELIAL CELLS 0-5 /hpf (0-5); GRANULAR CAST 0-5 /lpf (NONE SEEN); RED CELLS - URINE 0-5 /hpf (0-5); WHITE CELLS - URINE 0-5 /hpf (0-5)
[2018-12-01 10:54] LABS: % SATURATION 12 % (15-55); IRON 25 ug/dl (35-150); TOTAL IRON BIND CAPACITY 203 ug/dl (260-445); UNSAT IRON BIND CAPACITY 178 ug/dl (150-375)
--- NOTE | 2018-12-01 11:49 | NUR ---
IV TO RIGHT UPPER ARM INFILTRATED. 2 ATTEMPTS TO START NEW IV ACCESS. ERGONOMICS ENGINEER CALLED FOR IV CONSULT.
[2018-12-01 14:25] VITALS: BP 119/49
[2018-12-01 18:11] VITALS: BP 115/49
--- NOTE | 2018-12-01 19:00 | NUR ---
REPORT RECEIVED AND CARE OF PT ASSUMED. PT LYING IN LOW SOLOMON'S POSITION. IV IN LEFT AC PATENT WITH 1/2 NS INFUSING AT 30 ML/HR. DRESSING AND PREVENA WOUND VAC ON LEFT HIP INTACT. WILL MONITOR FOR NEEDS.
--- NOTE | 2018-12-01 21:30 | NUR ---
HS MEDICATIONS GIVEN. WILL CONTINUE TO MONITOR FOR NEEDS.
--- NOTE | 2018-12-01 21:45 | NUR ---
PT VOIDED 300 ML YELLOW URINE INTO BEDPAN. WILL CONTINUE TO MONITOR FOR NEEDS.
[2018-12-02 00:19] VITALS: BP 153/61
[2018-12-02 04:32] VITALS: BP 119/50
[2018-12-02 05:51] LABS: BASOPHILS 0.3 % (0-2); EOSINOPHILS 3.3 % (0-7); HEMATOCRIT 25.6 % (36.0-48.0); HEMOGLOBIN 8.6 g/dL (12-16); IMMATURE GRANULOCYTES 0.1 % (0-5); LYMPHOCYTES 14.9 % (15-50); MCH 33.2 pg (26.0-34.0); MCHC 33.6 g/dL (31.0-37.0); MCV 98.8 fL (80.0-100.0); MONOCYTES 11.3 % (2-11); NEUTROPHILS 70.1 % (40-80); PLATELET COUNT 188 10x3/uL (130-400); RBC 2.59 10x6/uL (4.00-5.40); WBC 7.2 10x3/uL (4.8-10.8)
[2018-12-02 05:55] LABS: CALC OSMOLALITY 266 mosm/kg (275-300); CALCIUM 8.4 mg/dL (8.5-10.1); CARBON DIOXIDE 26.4 mmol/L (21.0-32.0); CHLORIDE - SERUM 99 mmol/L (98-107); CREATININE - SERUM 0.7 mg/dL (0.6-1.3); GLUCOSE 126 mg/dL (74-106); POTASSIUM - SERUM 4.3 mmol/L (3.5-5.1); SODIUM 132 mmol/L (136-145); UREA NITROGEN 12 mg/dL (7-18); eGFR NON AFRICAN AMERICAN 84 mL/min (90-120)
--- NOTE | 2018-12-02 08:35 | OP ---
PATIENT NAME: RADHA THAKKAR MEDICAL RECORD: [id number] :33 LOCATION:[id number] ADMISSION DATE:11/30/18 SURGEON: WINTER RIBERA DO DATE OF OPERATION: 11/30/2018 PROCEDURE PERFORMED: Revision left total hip arthroplasty. PREOPERATIVE DIAGNOSIS: Periprosthetic femur fracture of the left hip. POSTOPERATIVE DIAGNOSIS: Periprosthetic femur fracture of the left hip. INDICATIONS: Ms. Thakkar is an 83-year-old female that underwent total hip arthroplasty of the left hip on 10/30/2018. She has been walking on it. She never fell or felt a pop or anything, has been walking on it and said she had some pain and got an x-ray this week on the and noticed a periprosthetic femur fracture of the left hip that was just proximal to the tip of the stem with subsidence of the femur implant. This noted that the stem was loose, requiring a revision. I informed her of that and put her on the schedule for today, told her of the risk for damage to nerves and vessels, weakness in that leg, infection, bleeding, and need for further surgery, but if she did do nothing that it would continue to fracture and she would not be able to walk on it. She understood the risks and signed the consent for the procedure. SURGEON: Winter Ribera DO DESCRIPTION OF PROCEDURE: The patient received a block by anesthesia in the preoperative area. She was taken to the operative suite, laid in the supine position, given general anesthetic, intubated, and the patient was placed on the [place] table. The left hip was prepped and draped in sterile fashion. A time-out was performed, everyone was in agreement as to correct side, site, and patient and procedure. She was given 2 grams of Ancef preoperatively. Incision then began over the old incision of the left hip and then curved slightly posterior and down the lateral aspect of the femur. Careful dissection was made down to the femur itself and the IT band was opened up on the lateral femur in order to expose it. The hip was dislocated at that time and the stem was removed. Once the stem was removed 4 cables were placed around the femur with a turkey claw holding reduction of the fracture as 2 were placed first, first distally and then more proximal and then these were tied down and the turkey claw was removed, another cable, 1.6 cable, was placed and then a fourth cable was placed above the lesser trochanter around the femur, it was a 1.6. This did loosen towards the end and was replaced with a 2.0 cable and tightened down after the stem was put down. Once the old stem was removed and the fracture was fixed, reaming began with a long stem up to a 13. The 13 stem was placed, it was somewhat loose in the proximal portion and decided to do a 14. A 14 was used as a trial. This was reduced and the -6 neck seemed that she had before and it was a good length on x-ray. This was then removed and reamed up 1 more to a 14 with a good proximal fit of the 14. At this point, the long reamer 14 was put in. The 14 x 175 mm stem that was collared Arthroa stem was placed and fit very well. The second cable was then put on after the first one was removed at the more proximal femur. The hip was then reduced. The head was put on, a 28 x -6 neck, it was then reduced. X-rays were taken, seemed to fit very well. Good lengths compared to the other side as well as bypassing the fracture site by at least 2 cortical diameters distal. The site was then thoroughly irrigated. Surgicel beads were placed in the wound as well as tobramycin and vancomycin powder and the IT band and tensor fascia dustin was closed as well with #1 Vicryl OPERATIVE REPORT [id number] RADHA THAKKAR in [id number] fashion. Once that was closed, the skin on top of that was irrigated and then the skin was closed with 2-0 Vicryl in inverted interrupted fashion and then a 3-0 nylon was ran the skin and a Prevena incisional VAC was placed on the skin. The patient was then awakened and taken to recovery in stable condition. BLOOD LOSS: Approximately 300 mL. COMPLICATIONS: None. TRANSINT:[id number] Voice Confirmation ID: [id number] DOCUMENT ID: [id number] WINTER RIBERA DO at 0835 CC: [id number] DICTATION DATE: 11/30/181755 ASSISTANT BRANCH MANAGER: 12/01/18 0122 ADM IN [address] [address]
[2018-12-02 10:10] VITALS: BP 120/46
[2018-12-02 14:23] VITALS: BP 114/49
--- NOTE | 2018-12-02 14:23 | NUR ---
PT ALERT X 4. BREATH SOUNDS CLEAR BILAT. PREVENA TO LEFT HIP. IV TO LEFT AC, SALINE LOCKED. PT REPORTS NO PAIN WHEN NOT AMBULATING AND NOT NEEDING MEDICATION AT THIS TIME. BED LOW, CALL LIGHT IN REACH. NO OTHER NEEDS AT THIS TIME.
[2018-12-02 16:00] VITALS: BP 135/53
--- NOTE | 2018-12-02 16:46 | NUR ---
PT RESTING COMFORTABLY IN BED. NO PAIN OR NAUSEA AT THIS TIME
--- NOTE | 2018-12-02 19:00 | NUR ---
REPORT RECEIVED AND CARE OF PT ASSUMED. PT LYING IN LOW SOLOMON'S POSITION READING A BOOK. IV IN LEFT AC SALINE LOCKED. WILL MONITOR FOR NEEDS.
[2018-12-02 20:00] VITALS: BP 137/55
--- NOTE | 2018-12-02 21:42 | NUR ---
HS MEDICATIONS GIVEN. WILL CONTINUE TO MONITOR FOR NEEDS.
--- NOTE | 2018-12-02 22:00 | NUR ---
ASSISTED UP TO USE BSC WITH PT USING WALKER FOR SUPPORT. POSITIONED BACK IN BED FOR COMFORT. WILL CONTINUE TO MONITOR FOR NEEDS.
[2018-12-03] VITALS: BP 130/60
[2018-12-03 03:00] VITALS: BP 128/56
[2018-12-03 03:58] LABS: BASOPHILS 0.1 % (0-2); EOSINOPHILS 2.6 % (0-7); HEMATOCRIT 23.2 % (36.0-48.0); HEMOGLOBIN 7.9 g/dL (12-16); IMMATURE GRANULOCYTES 0.3 % (0-5); LYMPHOCYTES 12.5 % (15-50); MCH 33.5 pg (26.0-34.0); MCHC 34.1 g/dL (31.0-37.0); MCV 98.3 fL (80.0-100.0); MEAN PLATELET VOLUME 8.7 fL (7.4-10.4); MONOCYTES 9.2 % (2-11); NEUTROPHILS 75.3 % (40-80); PLATELET COUNT 189 10x3/uL (130-400); RBC 2.36 10x6/uL (4.00-5.40); RDW 14.1 % (11.5-14.5); WBC 7.4 10x3/uL (4.8-10.8)
[2018-12-03 04:22] LABS: CALC OSMOLALITY 268 mosm/kg (275-300); CALCIUM 8.3 mg/dL (8.5-10.1); CARBON DIOXIDE 28.1 mmol/L (21.0-32.0); CHLORIDE - SERUM 99 mmol/L (98-107); CREATININE - SERUM 0.7 mg/dL (0.6-1.3); GLUCOSE 121 mg/dL (74-106); SODIUM 134 mmol/L (136-145); UREA NITROGEN 12 mg/dL (7-18); eGFR NON AFRICAN AMERICAN 84 mL/min (90-120)
[2018-12-03 04:33] LABS: POTASSIUM - SERUM 3.3 mmol/L (3.5-5.1)
--- NOTE | 2018-12-03 04:57 | NUR ---
PT REQUESTING MEDICATION FOR PAIN AND "RESTLESS LEGS". GAVE NORCO 5 PO PER PRN ORDER. WILL MONITOR FOR EFFECTIVENESS. CALL LIGHT WITHIN REACH.
[2018-12-03 09:23] VITALS: BP 133/88
--- NOTE | 2018-12-03 20:00 | NUR ---
ASSESSMENT PER DANA. WOUND VAC PATENT TO LEFT THIGH/HIP AREA C/D/I. IV SALINE LOCK TO RT WRIST. SR UP X2 CALL LIGHT WITHIN REACH. UP WITH HELP TO BSC VOIDS WELL.
--- NOTE | 2018-12-03 20:05 | NUR ---
I have reviewed this patient and I concur with the Shift Assessment completed by the Licensed Practical Nurse today this shift.
--- NOTE | 2018-12-03 21:00 | NUR ---
MEDS GIVEN PER MAR.
[2018-12-03 21:09] VITALS: BP 197/89
--- NOTE | 2018-12-03 23:10 | NUR ---
EYES CLOSED RESPIRATIONS WITH EASE AND UNLABORED.
[2018-12-04 00:23] VITALS: BP 180/80
[2018-12-04 05:09] VITALS: BP 134/74
[2018-12-04 06:10] LABS: BASOPHILS 0.3 % (0-2); EOSINOPHILS 5.3 % (0-7); IMMATURE GRANULOCYTES 0.3 % (0-5); LYMPHOCYTES 16.6 % (15-50); MCH 32.5 pg (26.0-34.0); MCHC 33.9 g/dL (31.0-37.0); MEAN PLATELET VOLUME 9.4 fL (7.4-10.4); MONOCYTES 9.2 % (2-11); NEUTROPHILS 68.3 % (40-80); PLATELET COUNT 187 10x3/uL (130-400); RDW 14.7 % (11.5-14.5); WBC 6.6 10x3/uL (4.8-10.8)
[2018-12-04 06:11] LABS: HEMATOCRIT 32.7 % (36.0-48.0); HEMOGLOBIN 11.1 g/dL (12-16); MCV 95.6 fL (80.0-100.0); RBC 3.42 10x6/uL (4.00-5.40)
[2018-12-04 06:18] LABS: CALC OSMOLALITY 272 mosm/kg (275-300); CALCIUM 8.3 mg/dL (8.5-10.1); CHLORIDE - SERUM 102 mmol/L (98-107); CREATININE - SERUM 0.6 mg/dL (0.6-1.3); GLUCOSE 100 mg/dL (74-106); POTASSIUM - SERUM 3.5 mmol/L (3.5-5.1); SODIUM 137 mmol/L (136-145); UREA NITROGEN 9 mg/dL (7-18); eGFR NON AFRICAN AMERICAN > 90 mL/min (90-120)
[2018-12-04 08:23] VITALS: BP 148/76
[2018-12-04 09:21] LABS: FOLATE (FOLIC ACID) - SERUM >20.0 ng/mL (>3.0)
--- NOTE | 2018-12-04 11:01 | NUR ---
PT SITTING UP IN BED READY FOR D/C ADVISED PT DR Coppola SHOULD BE MAKING ROUNDS IN BETWEEN SURGERIES TODAY, BED IN LOWEST POSITION, CL IN REACH CONTINUE WITH PLAN OF CARE,
[2018-12-04] MEDS ORDERED: ELIQUIS2.5 MG PO (11:21)
[2018-12-04] MEDS ORDERED: KEFLEX500 MG PO (11:21)
[2018-12-04] MEDS ORDERED: HYDROCODON-ACE1 EA10 PO (11:21)
--- NOTE | 2018-12-04 11:58 | MORECARE ---
CASE MANAGEMENT DISCHARGE SUMMARY PATIENT: RADHA THAKKAR UNIT: [id number] ADM DATE: 11/30/18 AGE: 83 : 34 SEX: F ROOM/BED: D.2217 AUTHOR: THOMAS GOMEZ PHYSICIAN: REFERRING PHYSICIAN: WINTER RIBERA DO DATE OF SERVICE: 12/04/18 Discharge Plan Patient Name: RADHA THAKKAR Facility: [facility] : 1935 Planned Disposition: Home or Self Care Anticipated Discharge Date: Discharge Date: Expected LOS: Initial Reviewer: [id number] Initial Review Date: 11/30/2018 Generated: 12/04/18 12:58 pm DCPIA - Discharge Planning Initial Assessment Updated by [id number]: Victorina Perea on 12/04/18 11:55 am * Is the patient Alert and Oriented? Yes * How many steps to enter\exit or inside your home? * PCP [facility] * Pharmacy [facility] * Preadmission Environment Home with Family * ADLs Independent * Equipment Rolling Walker * Other Equipment GRABBER * List name and contact numbers for known caregivers / representatives who currently or will assist patient after discharge: LOUIE ()[phone] * Verbal permission to speak to the caregivers and representatives has been obtained from the patient. N/A * Community resources currently utilized Other * Please name any agencies selected above. [facility] * Additional services required to return to the preadmission environment? Yes * Can the patient safely return to the preadmission environment? Yes * Has this patient been hospitalized within the prior 30 days at any hospital? No External Providers [facility] Date: Service Request Date: Service Type: Resolution: Reviewer: Comments: Coverage Notice Reviewer: [id number] - Victorina Perea Notice Issued Date-Time: 12/04/2018 11:40 Notice Type: IM Discharge Notice Notice Delivered To: Patient Relationship to Patient: Cash Analyst Name: Delivery Method: HAND - Hand Delivered Trista Days: Prior Verbal Notification: Recipient Understood Notice: Yes Recipient Signature: Yes Med Rec Note Co-signed by Attending: Coverage Notice Comment: Patient Name: RADHA THAKKAR Page [id number] at 1158 All edits/amendments must be made on the electronic document DICTATION DATE: 12/04/181156 RETAIL COSMETICS SALES COUNTER MANAGER: RICK 12/04/181156 RPT#: [id number] DC DATE: STATUS: ADM IN [facility] [address] [place] [address] END OF REPORT
--- NOTE | 2018-12-04 12:08 | MORECARE ---
CASE MANAGEMENT DISCHARGE SUMMARY PATIENT: RADHA THAKKAR UNIT: [id number] ADM DATE: 11/30/18 AGE: 83 : 34 SEX: F ROOM/BED: D.0687 AUTHOR: THOMAS GOMEZ PHYSICIAN: REFERRING PHYSICIAN: WINTER RIBERA DO DATE OF SERVICE: 12/04/18 Discharge Plan Patient Name: RADHA THAKKAR Facility: [facility]:[place] : 1935 Planned Disposition: Home or Self Care Anticipated Discharge Date: Discharge Date: Expected LOS: Initial Reviewer: [id number] Initial Review Date: 11/30/2018 Generated: 12/04/18 1:08 pm Comments DCP- Discharge Planning Updated by [id number]: Victorina Perea on 12/04/18 11:[address] Patient Name: RADHA THAKKAR Admission Status: Elective Accout number: [id number] Admission Date: 11-30-2018 : 1935 Admission Diagnosis:FRACTURE OF UNSP PART OF NECK OF LEFT FEMUR, INIT Attending: WINTER RIBERA Current LOS: 4 Anticipated DC Date: Planned Disposition: Home or Self Care Primary Insurance: MEDICARE A & B Discharge Planning Comments: CM met with patient to assess discharge planning needs. Patient stated that she lives independently at home with her and plans to return there today. She does not have any steps in her home and she feels that her home is a safe discharge. She has a walker and a grabber at home .She was doing OP PT at [facility], I called and they stated that I needed to make a new appointment. I new appointment was made for December 06 at 11:00 am. I spoke with Ekaterina. A copy will be given to the patient in her discharge instructions. I also told her about the appointment. IMM served and explained. CM will continue to follow and assist with dc planning as needed. Inventory Technician: Victorina Perea DCPIA - Discharge Planning Initial Assessment Updated by [id number]: Victorina Perea on 12/04/18 11:55 am * Is the patient Alert and Oriented? Yes * How many steps to enter\exit or inside your home? * PCP [facility] * Pharmacy [facility] * Preadmission Environment Home with Family * ADLs Independent * Equipment Rolling Walker * Other Equipment GRABBER * List name and contact numbers for known caregivers / representatives who currently or will assist patient after discharge: LOUIE ()[phone] * Verbal permission to speak to the caregivers and representatives has been obtained from the patient. N/A * Community resources currently utilized Other * Please name any agencies selected above. OP PT AT [facility] * Additional services required to return to the preadmission environment? Yes * Can the patient safely return to the preadmission environment? Yes * Has this patient been hospitalized within the prior 30 days at any hospital? No Coverage Notice Reviewer: [id number] Andrés Perea Notice Issued Date-Time: 12/04/2018 11:40 Notice Type: IM Discharge Notice Notice Delivered To: Patient Relationship to Patient: Motor Vehicle Licence Examiner Name: Delivery Method: HAND - Hand Delivered Trista Days: Prior Verbal Notification: Recipient Understood Notice: Yes Recipient Signature: Yes Med Rec Note Co-signed by Attending: Coverage Notice Comment: Last DP export: 12/04/18 10:58 a Patient Name: RADHA THAKKAR Page [phone] at 1208 All edits/amendments must be made on the electronic document DICTATION DATE: 12/04/181206 HEAT TREAT TECHNICIAN: RICK 12/04/181206 RPT#: [id number] DC DATE: STATUS: ADM IN [facility] [address] [place] [address] END OF REPORT
--- NOTE | 2018-12-05 07:27 | MORECARE ---
CASE MANAGEMENT DISCHARGE SUMMARY PATIENT: RADHA THAKKAR UNIT: [id number] ADM DATE: 11/30/18 AGE: 83 : 34 SEX: F ROOM/BED: D.2217 AUTHOR: THOMAS GOMEZ PHYSICIAN: REFERRING PHYSICIAN: WINTER RIBERA DO DATE OF SERVICE: 12/05/18 Discharge Plan Patient Name: RADHA THAKKAR Facility: [facility]:[place] : 1935 Planned Disposition: Home or Self Care Anticipated Discharge Date: Discharge Date: 12/04/2018 Expected LOS: 0 Initial Reviewer: [id number] Initial Review Date: 11/30/2018 Generated: 12/05/18 8:27 am Comments DCP- Discharge Planning Updated by [email or web address]: Victorina Perea on 12/04/18 11:[address] Patient Name: RADHA THAKKAR Admission Status: Elective Accout number: [id number] Admission Date: 11-30-2018 : 1935 Admission Diagnosis:FRACTURE OF UNSP PART OF NECK OF LEFT FEMUR, INIT Attending: WINTER RIBERA Current LOS: 4 Anticipated DC Date: Planned Disposition: Home or Self Care Primary Insurance: MEDICARE A & B Discharge Planning Comments: CM met with patient to assess discharge planning needs. Patient stated that she lives independently at home with her and plans to return there today. She does not have any steps in her home and she feels that her home is a safe discharge. She has a walker and a grabber at home .She was doing OP PT at [facility], I called and they stated that I needed to make a new appointment. I new appointment was made for December 06 at 11:00 am. I spoke with Ekaterina. A copy will be given to the patient in her discharge instructions. I also told her about the appointment. IMM served and explained. CM will continue to follow and assist with dc planning as needed. Paper Slitter: Victorina Perea DCPIA - Discharge Planning Initial Assessment Updated by [id number]: Victorina Perea on 12/04/18 11:55 am * Is the patient Alert and Oriented? Yes * How many steps to enter\exit or inside your home? * PCP [facility] * Pharmacy [facility] * Preadmission Environment Home with Family * ADLs Independent * Equipment Rolling Walker * Other Equipment GRABBER * List name and contact numbers for known caregivers / representatives who currently or will assist patient after discharge: LOUIE ()[phone] * Verbal permission to speak to the caregivers and representatives has been obtained from the patient. N/A * Community resources currently utilized Other * Please name any agencies selected above. [facility] PT [facility] * Additional services required to return to the preadmission environment? Yes * Can the patient safely return to the preadmission environment? Yes * Has this patient been hospitalized within the prior 30 days at any hospital? No Coverage Notice Reviewer: [id number] Andrés Perea Notice Issued Date-Time: 12/04/2018 11:40 Notice Type: IM Discharge Notice Notice Delivered To: Patient Relationship to Patient: Snowmobile Mechanic Name: Delivery Method: HAND - Hand Delivered Trista Days: Prior Verbal Notification: Recipient Understood Notice: Yes Recipient Signature: Yes Med Rec Note Co-signed by Attending: Coverage Notice Comment: Last DP export: 12/04/18 11:08 a Patient Name: RADHA THAKKAR Page [id number] at 0727 All edits/amendments must be made on the electronic document DICTATION DATE: 12/05/18726 CHIEF COMPRESSOR STATION ENGINEER: RICK 12/05/18726 RPT#: [id number] DC DATE:12/04/18 STATUS: DIS IN [facility] [address] [place] [address] END OF REPORT
== END 2018-12-04 13:57 | disposition home or self-care (01) | DRG 467 ==
LOC: D.SDCHOLD 11-30 11:48 → D.MS 11-30 11:48 → D.SDCHOLD 11-30 14:15 → D.MS 11-30 18:25
PROVIDERS: Internal Medicine Nephrology; ADMIT Orthopaedic Surgery; ATTEND Orthopaedic Surgery
PROC: 0SRS0JZ Replacement of Left Hip Joint, Femoral Surface with Synthetic Substitute, Open Approach (ICD-10-PCS; principal; 2018-12-02)
PROC: 0SPS0JZ Removal of Synthetic Substitute from Left Hip Joint, Femoral Surface, Open Approach (ICD-10-PCS; 2018-12-02)
DX: S72.002A Fracture of unspecified part of neck of left femur, initial encounter for closed fracture (principal); M97.02XA Periprosthetic fracture around internal prosthetic left hip joint, initial encounter; N39.0 Urinary tract infection, site not specified; D62 Acute posthemorrhagic anemia; I10 Essential (primary) hypertension; E78.5 Hyperlipidemia, unspecified; D64.9 Anemia, unspecified

== ENCOUNTER → 2019-04-29 09:25 | Outpatient (CLI) | payer MEDICARE, BC ==
[2018-11-30 21:21] VITALS: BMI 24.5
== END | disposition home or self-care (01) ==
LOC: D.MRI 09:25
PROVIDERS: ATTEND Family Medicine
DX: M50.30 Other cervical disc degeneration, unspecified cervical region (principal); R42 Dizziness and giddiness

== ENCOUNTER 2019-07-03 10:18 | Emergency (ER) | payer MEDICARE, BC ==
[~2019-07-03] VITALS: Ht 149.9 cm; Wt 54.5 kg
[2019-07-03 10:26] VITALS: Ht 149.9 cm; Wt 54.5 kg
[2019-07-03 10:56] LABS: BASOPHILS 0.3 % (0-2); EOSINOPHILS 0.9 % (0-7); HEMATOCRIT 40.5 % (36.0-48.0); HEMOGLOBIN 14.1 g/dL (12-16); IMMATURE GRANULOCYTES 0.2 % (0-5); MCHC 34.8 g/dL (31.0-37.0); MCV 97.6 fL (80.0-100.0); MONOCYTES 7.8 % (2-11); NEUTROPHILS 61.8 % (40-80); RBC 4.15 10x6/uL (4.00-5.40); RDW 13.3 % (11.5-14.5); WBC 5.8 10x3/uL (4.8-10.8)
[2019-07-03 11:07] LABS: PLATELET COUNT 272 10x3/uL (130-400)
[2019-07-03 11:12] LABS: APPEARANCE CLEAR (CLEAR); BILIRUBIN NEGATIVE (NEGATIVE); COLOR YELLOW (YELLOW); GLUCOSE NEGATIVE (NEGATIVE); KETONE NEGATIVE (NEGATIVE); NITRITE NEGATIVE (NEGATIVE); PROTEIN NEGATIVE (NEGATIVE); SPECIFIC GRAVITY 1.015 (1.005-1.020); UROBILINOGEN NORMAL (NORMAL)
[2019-07-03 11:13] LABS: ALKALINE PHOSPHATASE 60 U/L (46-116); ALT (SGPT) 28 U/L (10-68); BILIRUBIN - TOTAL 0.36 mg/dL (0.2-1.3); CALC OSMOLALITY 266 mosm/kg (275-300); CALCIUM 9.5 mg/dL (8.5-10.1); CARBON DIOXIDE 28.5 mmol/L (21.0-32.0); CHLORIDE - SERUM 98 mmol/L (98-107); CREATININE - SERUM 0.6 mg/dL (0.6-1.3); GLUCOSE 118 mg/dL (74-106); POTASSIUM - SERUM 3.9 mmol/L (3.5-5.1); PROTEIN - SERUM 7.1 g/dL (6.4-8.2); SODIUM 133 mmol/L (136-145); UREA NITROGEN 12 mg/dL (7-18); eGFR NON AFRICAN AMERICAN > 90 mL/min (90-120)
[2019-07-03 11:15] LABS: INR 0.98 (0.85-1.17); PROTIME 12.5 SECONDS (11.6-15.0)
[2019-07-03 11:22] LABS: CKMB 1.2 U/L (0.0-3.6); CREATINE KINASE 55 UL (21-215); MAGNESIUM - SERUM 1.7 mg/dL (1.8-2.4); TROPONIN-I < 0.017 ng/mL (0.000-0.060)
[2019-07-03 13:39] VITALS: BP 166/71
== END 2019-07-03 13:41 | disposition home or self-care (01) ==
LOC: D.ER 10:18
PROVIDERS: Family Medicine
DX: R55 Syncope and collapse (principal); I10 Essential (primary) hypertension; E78.5 Hyperlipidemia, unspecified; K21.9 Gastro-esophageal reflux disease without esophagitis

== ENCOUNTER 2019-07-28 21:43 | Observation (INO) | payer MEDICARE, BC ==
[~2019-07-28] VITALS: Ht 149.9 cm; Wt 54.4 kg
[2019-07-28] MEDS ORDERED: COZAAR100 MG PO (22:05)
[2019-07-28] MEDS ORDERED: CATAPRES0.1 MG PO (22:05)
[2019-07-28] MEDS ORDERED: BAYER CHEWABLE81 MG PO (22:05)
[2019-07-28] MEDS ORDERED: MIRAPEX0.25 MG PO (22:06)
[2019-07-28] MEDS ORDERED: SLEEP AID (22:06)
[2019-07-28] MEDS ORDERED: TEMAZEPAM30 MG (22:06)
[2019-07-28 22:30] VITALS: BP 140/56
[2019-07-28 23:12] LABS: BASOPHILS 0.3 % (0-2); EOSINOPHILS 2.8 % (0-7); HEMATOCRIT 37.6 % (36.0-48.0); HEMOGLOBIN 12.8 g/dL (12-16); LYMPHOCYTES 32.2 % (15-50); MCH 33.6 pg (26.0-34.0); MCV 98.7 fL (80.0-100.0); MEAN PLATELET VOLUME 8.9 fL (7.4-10.4); MONOCYTES 7.3 % (2-11); NEUTROPHILS 57.4 % (40-80); PLATELET COUNT 302 10x3/uL (130-400); RBC 3.81 10x6/uL (4.00-5.40); WBC 6.9 10x3/uL (4.8-10.8)
[2019-07-28 23:22] LABS: APTT 25.4 SECONDS (22.8-39.4); CALC OSMOLALITY 271 mosm/kg (275-300); CARBON DIOXIDE 29.4 mmol/L (21.0-32.0); CHLORIDE - SERUM 99 mmol/L (98-107); CREATININE - SERUM 0.7 mg/dL (0.6-1.3); GLUCOSE 97 mg/dL (74-106); INR 0.94 (0.85-1.17); POTASSIUM - SERUM 3.3 mmol/L (3.5-5.1); PROTIME 12.1 SECONDS (11.6-15.0); SODIUM 136 mmol/L (136-145); UREA NITROGEN 12 mg/dL (7-18); eGFR NON AFRICAN AMERICAN 84 mL/min (90-120)
[2019-07-28 23:30] VITALS: BP 155/61
[2019-07-28 23:37] LABS: ALBUMIN 3.1 g/dL (3.4-5.0); ALKALINE PHOSPHATASE 61 U/L (46-116); ALT (SGPT) 35 U/L (10-68); BILIRUBIN - TOTAL 0.35 mg/dL (0.2-1.3); CKMB 0.3 U/L (0.0-3.6); CREATINE KINASE 23 UL (21-215); MAGNESIUM - SERUM 1.6 mg/dL (1.8-2.4); TROPONIN-I < 0.017 ng/mL (0.000-0.060)
[2019-07-28 23:37] LABS: APPEARANCE CLEAR (CLEAR); BILIRUBIN NEGATIVE (NEGATIVE); COLOR YELLOW (YELLOW); GLUCOSE NEGATIVE (NEGATIVE); KETONE NEGATIVE (NEGATIVE); NITRITE NEGATIVE (NEGATIVE); PROTEIN NEGATIVE (NEGATIVE); SPECIFIC GRAVITY 1.015 (1.005-1.020); UROBILINOGEN NORMAL (NORMAL)
[2019-07-28 23:38] LABS: BACTERIA FEW /hpf (NEGATIVE); EPITHELIAL CELLS 0-5 /hpf (0-5); RED CELLS - URINE 0-5 /hpf (0-5); WHITE CELLS - URINE 0-5 /hpf (NEGATIVE); YEAST <1+ /hpf (NONE SEEN)
[2019-07-29] VITALS (7 sets, daily range): BP systolic 136–172; BP diastolic 53–88; Ht 149.9 cm; Wt 54.4 kg
[2019-07-29] MEDS ORDERED: ARTHROTEC EC 71 EACH PO (01:39)
[2019-07-29 05:57] LABS: CKMB 0.3 U/L (0.0-3.6); CREATINE KINASE 24 UL (21-215); TROPONIN-I < 0.017 ng/mL (0.000-0.060)
--- NOTE | 2019-07-29 07:15 | NUR ---
RECEIVED PT IN BED AAOX4 RESP UNLABORED SKIN W/D COLOR DENIES ANY NEEDS OR DISCOMFORT AT THIS TIME
[2019-07-29 11:25] LABS: CKMB 0.2 U/L (0.0-3.6); CREATINE KINASE 22 UL (21-215); TROPONIN-I < 0.017 ng/mL (0.000-0.060)
--- NOTE | 2019-07-29 11:57 | NUR ---
refuses to wear scds
--- NOTE | 2019-07-29 11:59 | NUR ---
refuses to wear scds
--- NOTE | 2019-07-29 17:04 | MORECARE ---
CASE MANAGEMENT DISCHARGE SUMMARY PATIENT: RADHA THAKKAR UNIT: [id number] ADM DATE: 07/29/19 AGE: 84 : 34 SEX: F ROOM/BED: D.2121 AUTHOR: THOMAS GOMEZ PHYSICIAN: REFERRING PHYSICIAN: AMPARO MOREL MD DATE OF SERVICE: 07/29/19 Discharge Plan Patient Name: RADHA THAKKAR Facility: [facility]:[place] : 1935 Planned Disposition: Anticipated Discharge Date: 07/29/19 Discharge Date: Expected LOS: 1 Initial Reviewer: [id number] Initial Review Date: 07/29/2019 Generated: 07/29/19 6:04 pm Coverage Notice Reviewer: [id number] - Brody Mitchell Notice Issued Date-Time: 07/29/2019 16:45 Notice Type: Medicare Outpatient Observation Notice Notice Delivered To: Patient Relationship to Patient: Meat Seafood Associate Name: Delivery Method: HAND - Hand Delivered Trista Days: Prior Verbal Notification: Recipient Understood Notice: Yes Recipient Signature: Yes Med Rec Note Co-signed by Attending: Coverage Notice Comment: Patient Name: RADHA THAKKAR Page [phone] at 1704 All edits/amendments must be made on the electronic document DICTATION DATE: 07/29/191703 SOCIAL MEDIA MARKETING SPECIALIST: RICK 07/29/191703 RPT#: [id number] DC DATE: STATUS: ADM IN [place] [address] [place] [address] END OF REPORT
[2019-07-29 17:14] LABS: CKMB 0.2 U/L (0.0-3.6); CREATINE KINASE 22 UL (21-215); TROPONIN-I < 0.017 ng/mL (0.000-0.060)
[2019-07-30] VITALS: BP 161/72
--- NOTE | 2019-07-30 00:36 | NUR ---
RESTING WITH EYES CLOSED, RESPERATIONS EVEN, NO S/S DISTRESS NOTED.
[2019-07-30 04:25] VITALS: BP 165/62
--- NOTE | 2019-07-30 07:57 | NUR ---
ALERT AND ORIENTED. DENIES ANY NEEDS. TELEMERTY SHOWS SR. RIGHT AC SL. UP AB ALEJA. SR UP WITH CALL LIGHT IN REACH
[2019-07-30 08:00] VITALS: BP 161/68
[2019-07-30 12:00] VITALS: BP 167/83
--- NOTE | 2019-07-30 12:43 | NUR ---
I have reviewed this patient and I concur with the Shift Assessment completed by the Licensed Practical Nurse today this shift.
--- NOTE | 2019-07-30 12:44 | NUR ---
DENIES ANY NEEDS. AWAITING DISCHARGE. WILL MONITOR
--- NOTE | 2019-07-30 14:33 | NUR ---
PT DISCHARGED. IV DCD WITH TIP INTACT. INSTRUCTIONS GIVEN TO PT. TO PRIVATE CAR PER WHEELCHAIR.
--- NOTE | 2019-07-31 08:36 | MORECARE ---
CASE MANAGEMENT DISCHARGE SUMMARY PATIENT: RADHA THAKKAR UNIT: [id number] ADM DATE: 07/29/19 AGE: 84 : 34 SEX: F ROOM/BED: D.2121 AUTHOR: THOMAS GOMEZ PHYSICIAN: REFERRING PHYSICIAN: AMPARO MOREL MD DATE OF SERVICE: 07/31/19 Discharge Plan Patient Name: RADHA THAKKAR Facility: [facility]:[place] : 1935 Planned Disposition: Home Anticipated Discharge Date: 07/30/19 Discharge Date: 07/30/2019 Expected LOS: 1 Initial Reviewer: [id number] Initial Review Date: 07/29/2019 Generated: 07/31/19 9:36 am Coverage Notice Reviewer: [id number] - Brody Mitchell Notice Issued Date-Time: 07/29/2019 16:45 Notice Type: Medicare Outpatient Observation Notice Notice Delivered To: Patient Relationship to Patient: Electrotype Finisher Name: Delivery Method: HAND - Hand Delivered Trista Days: Prior Verbal Notification: Recipient Understood Notice: Yes Recipient Signature: Yes Med Rec Note Co-signed by Attending: Coverage Notice Comment: Last DP export: 07/29/19 4:04 Patient Name: RADHA THAKKAR Page [phone] at 0836 All edits/amendments must be made on the electronic document DICTATION DATE: 07/31/1937 REGIONAL CRA: RICK 07/31/19 0836 RPT#: [id number] DC DATE:07/30/19 STATUS: DIS IN [facility] [address] [place] [address] END OF REPORT
== END 2019-07-30 14:46 | disposition home or self-care (01) ==
LOC: D.ER 21:43 → OBSVTIME 07-29 00:24 → D.M2 07-29 00:24
PROVIDERS: Emergency Medicine; ADMIT Internal Medicine Nephrology; ATTEND Internal Medicine Nephrology
DX: I20.9 Angina pectoris, unspecified (principal); R51 Headache; K21.9 Gastro-esophageal reflux disease without esophagitis; E78.5 Hyperlipidemia, unspecified; I10 Essential (primary) hypertension; F41.9 Anxiety disorder, unspecified; E87.6 Hypokalemia; E83.42 Hypomagnesemia

== ENCOUNTER → 2020-02-19 10:45 | Outpatient (CLI) | payer MEDICARE, BC ==
[2019-07-29 14:40] VITALS: BMI 24.2
[~2020-02-19 10:45] MED LIST changes: +CATAPRES0.1 MG PO; +COZAAR100 MG PO; +MIRAPEX0.25 MG PO; +SLEEP AID; +TEMAZEPAM30 MG; +TENORMIN25 MG PO
== END | disposition home or self-care (01) ==
LOC: D.CT 10:30
PROVIDERS: ATTEND Orthopaedic Surgery
DX: R51 Headache (principal)

== ENCOUNTER 2020-02-20 15:19 | Emergency (ER) | payer MEDICARE, BC ==
[~2020-02-20] VITALS: Ht 149.9 cm; Wt 54.5 kg
[~2020-02-20 15:19] MED LIST changes: -TENORMIN25 MG PO
[2020-02-20 15:24] VITALS: Ht 149.9 cm; Wt 54.5 kg
[2020-02-20] MEDS ORDERED: TENORMIN25 MG PO (16:00)
[2020-02-20 17:30] VITALS: BP 144/76
== END 2020-02-20 17:25 | disposition home or self-care (01) ==
LOC: D.ER 15:19
DX: R07.89 Other chest pain (principal); R55 Syncope and collapse; I10 Essential (primary) hypertension